=== PATIENT | female | born 1995 | race Two or more races ===

== ENCOUNTER 2019-12-03 13:45 | Outpatient (CLI) | payer SELFPAY ==
[~2019-12-03] VITALS: Ht 157.5 cm; Wt 74.0 kg
== END 2019-12-03 14:48 | disposition home or self-care (01) ==
LOC: LDOP 13:45
PROVIDERS: ATTEND Obstetrics & Gynecology
DX: O26.893 Other specified pregnancy related conditions, third trimester (principal); Z3A.29 29 weeks gestation of pregnancy
CPT/HCPCS: 59025